=== PATIENT | male | born 1990 | race Caucasian/White ===

== ENCOUNTER 2021-03-02 13:02 | Emergency (ER) | payer MEDICAID, OTHER ==
[~2021-03-02] VITALS: Ht 180.3 cm; Wt 118.8 kg
[2021-03-02 13:12] VITALS: BP 137/82
--- NOTE | 2021-03-02 13:20 | NUR ---
C/O L WRIST PAIN S/P FALL X 3 DAYS. DENIES N/V/D; SKIN IS PINK/WARM/DRY; AAOX4 WITH EVEN AND STEADY GAIT; LUNGS CLEAR BL; HR EVEN AND REGULAR; PT DENIES ANY FEVER, CP, SOB, OR COUGH AT THIS TIME; PATIENT STATES PAIN OF 8/10 AT THIS TIME.
--- NOTE | 2021-03-02 14:09 | NUR ---
PT PLACED IN LEFT VELCRO THUMB SPICA SPLINT CMS WNL BEFORE AND AFTER.
[2021-03-02] MEDS ORDERED: IBUP-2213 PO (14:43)
[2021-03-02 14:52] VITALS: BP 137/82
== END 2021-03-02 14:52 | disposition home or self-care (01) ==
LOC: MED 13:02
DX: G89.29 Other chronic pain (principal); M25.532 Pain in left wrist; R03.0 Elevated blood-pressure reading, without diagnosis of hypertension; W11.XXXA Fall on and from ladder, initial encounter; Y93.89 Activity, other specified; Y92.89 Other specified places as the place of occurrence of the external cause; Y99.8 Other external cause status
CPT/HCPCS: 73110; 99283

== ENCOUNTER 2021-03-18 19:12 | Emergency (ER) | payer MEDICAID ==
[~2021-03-18] VITALS: Ht 180.3 cm; Wt 113.4 kg
[~2021-03-18 19:12] MED LIST: IBUP-2213 PO
[2021-03-18 19:26] VITALS: BP 114/79
--- NOTE | 2021-03-18 19:33 | NUR ---
PATIENT IN TENT
--- NOTE | 2021-03-18 19:38 | NUR ---
CALLED RT FOR BREATHING TX
--- NOTE | 2021-03-18 19:50 | NUR ---
called RT for Tx
[2021-03-18] MEDS ORDERED: ALBUTEROL SULFATE/IPRATROPIU 3 ML SOL IH ONE (20:00)
--- NOTE | 2021-03-18 20:10 | NUR ---
RT with patient for tx
[2021-03-18] MEDS ORDERED: ALBU0.0912 INH (21:53)
[2021-03-18 22:00] VITALS: BP 114/79
== END 2021-03-18 22:00 | disposition home or self-care (01) ==
LOC: MED 19:12
DX: U07.1 COVID-19 (principal); Z79.899 Other long term (current) drug therapy
CPT/HCPCS: 71045; 87426; 94640; 99284; U0003

== ENCOUNTER 2021-03-24 16:54 | Emergency (ER) | payer MEDICAID, SELFPAY ==
[~2021-03-24] VITALS: Ht 180.3 cm; Wt 113.4 kg
[~2021-03-24 16:54] MED LIST changes: +ALBU0.0912 INH
--- NOTE | 2021-03-24 17:14 | NUR ---
pt adviced to come in to be seen by MD and have CT done. pt asked to talk to before coming in.
--- NOTE | 2021-03-24 17:28 | NUR ---
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
--- NOTE | 2021-03-24 17:31 | NUR ---
31yo m bib c/o left sided weakness, facial numbness and change in speech x 1 day. pt has no hx of stroke. NIHSS completed and came back negative. Upon assessment of pt ambulation "with limp to L side and leaning to L side." Pt tested positive for covid 6 days ago. still with cough, sore throat and myalgia. pt currently states he is also experincing chest pain and sob at this moment. Pt admits to meth use saturday to help with chest pain and sob. pmh: none meds: none nka
--- NOTE | 2021-03-24 17:32 | NUR ---
labs collected bedside and given to director of cath lab [facility]
[2021-03-24 17:41] VITALS: BP 139/87
--- NOTE | 2021-03-24 17:42 | NUR ---
[facility] [phone]
--- NOTE | 2021-03-24 17:46 | NUR ---
smith swab done. handed to flor anaya.
[2021-03-24 17:52] LABS: BASOPHILS % (AUTO) 0.6 % (0.0-2.0); EOSINOPHILS # (AUTO) 0.1 K/uL (0-0.4); EOSINOPHILS % (AUTO) 1.3 % (0.0-4.0); HEMATOCRIT 40.6 % (36-52); HEMOGLOBIN 13.9 g/dL (12.0-18.0); LYMPHOCYTES # (AUTO) 2.3 K/uL (2.0-11.5); LYMPHOCYTES % (AUTO) 38.9 % (20.5-51.1); MEAN CORPUSCULAR HEMOGLOBIN 29 pg (27-31); MEAN CORPUSCULAR HGB CONC 34 g/dL (33-37); MEAN CORPUSCULAR VOLUME 85.6 fL (80-94); MONOCYTES # (AUTO) 0.7 K/uL (0.8-1.0); MONOCYTES % (AUTO) 11.5 % (1.7-9.3); NEUTROPHILS # (AUTO) 2.8 K/uL (1.8-7.7); NEUTROPHILS % (AUTO) 47.7 % (42.2-75.2); PLATELET COUNT (AUTO) 386 K/uL (140-450); RED BLOOD CELL COUNT(AUTO) 4.75 MIL/uL (4.20-6.10); RED CELL DISTRIBUTION WIDTH 13.1 % (11.6-13.7); WHITE BLOOD COUNT (AUTO) 5.9 K/uL (4.8-10.8)
--- NOTE | 2021-03-24 17:57 | NUR ---
leticia mtz collected bedside and walked over to lab
[2021-03-24 18:07] LABS: ALBUMIN 3.6 g/dL (3.4-5.0); ANION GAP 12.9 (8-16); CARBON DIOXIDE 26.8 mmol/L (21-32); CREATININE 1.1 mg/dL (0.6-1.3); POTASSIUM 3.7 mmol/L (3.5-5.1); TOTAL BILIRUBIN 0.6 mg/dL (0.0-1.0)
[2021-03-24 18:12] LABS: PROTHROMBIN TIME 9.8 secs (10.8-13.4)
[2021-03-24] MEDS ORDERED: REGENERON ANTIBODY ER ORDER 1 EA MISC MC ONE (18:25)
[2021-03-24] MEDS ORDERED: ERGOCALCIFEROL 50,000 IU SGL PO ONE (18:25)
[2021-03-24] MEDS ORDERED: DEXAMETHASONE 4 MG/ML VIAL IVP ONE (18:25)
--- NOTE | 2021-03-24 18:32 | NUR ---
Pt covid smith result came back as negative and made aware. Per md still instructed to given regeneron antibody. Pt stated "he was covid positive on saturday."
--- NOTE | 2021-03-24 18:42 | NUR ---
PT CURRENTLY RESTING WITH EYES OPEN. 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 VITAL SIGNS CURRENTLY STABLE. BED IN LOWEST POSITION WITH SIDERAIL X1 UP. WILL CONTINUE TO MONITOR
[2021-03-24] MEDS ORDERED: NON-FORMULARY ITEM 1 EA in NACL 0.9% 100 ML IV SCH (18:45)
--- NOTE | 2021-03-24 19:04 | NUR ---
ANGEL [phone]
--- NOTE | 2021-03-24 19:12 | NUR ---
report given to AZAM rose. transPt report given to AZAM Rose. Transfer of care at this time. Addendum: 03/24/21 at 1913 by [email or web address] Pt report given to AZAM Rose. Transfer of care at this time.
[2021-03-24] MEDS ORDERED: AZITHROMYCIN 500 MG in DEXTROSE 5% 250 ML IV ONE (19:35)
--- NOTE | 2021-03-24 20:00 | NUR ---
AWAKE AND ALERT, VOICES NO COMPLAINTS. SANDWICH GIVEN WITH OAPPLE JUICE. ATTACHED TO CM = SR.. PT STATES HE JUST FEELS TIRED
[2021-03-24] MEDS ORDERED: ZINC SULF 220 MG CAP PO SCH (20:05)
[2021-03-24] MEDS ORDERED: AZITHROMYCIN 500 MG INJ VIAL IV ONE (21:07)
[2021-03-24] MEDS ORDERED: ZINC50TA76 PO (21:30)
[2021-03-24] MEDS ORDERED: DEC4 PO (21:30)
[2021-03-24] MEDS ORDERED: IVER3TAB2 PO (21:30)
[2021-03-24] MEDS ORDERED: CHOL200072 PO (21:30)
[2021-03-24 22:00] VITALS: BP 128/76
--- NOTE | 2021-03-24 23:35 | NUR ---
Patient discharged with v/s stable. Written and verbal after care instructions given and explained. Patient alert, oriented and verbalized understanding of instructions. Ambulatory with steady gait. All questions addressed prior to discharge. ID band removed. Patient advised to follow up with PMD. Rx of VITAMIN D, DECADRON, IVERMECTIN, ZINC given. Patient educated on indication of medication including possible reaction and side effects. Opportunity to ask questions provided and answered.
== END 2021-03-24 23:35 | disposition home or self-care (01) ==
LOC: MED 16:54
DX: R07.9 Chest pain, unspecified (principal); R06.02 Shortness of breath; R51.9 Headache, unspecified; Z20.822 Contact with and (suspected) exposure to COVID-19; F17.210 Nicotine dependence, cigarettes, uncomplicated
CPT/HCPCS: 36415; 36600; 70450; 71045; 80053; 82803; 84484; 85025; 85379; 85610; 85730; 86886; 86900; 86901; 87040; 87426; 93005; 96365; 96375; 99285; J0456; J1100

== ENCOUNTER 2022-01-16 23:03 | Emergency (ER) | payer MEDICAID ==
[~2022-01-16] VITALS: Ht 180.3 cm; Wt 113.4 kg
[~2022-01-16 23:03] MED LIST changes: +CHOL200072 PO; +DEC4 PO; +IVER3TAB2 PO; +ZINC50TA76 PO
[2022-01-16 23:11] VITALS: BP 149/95
--- NOTE | 2022-01-16 23:25 | NUR ---
Called first time,- no show in lobby and outside.
--- NOTE | 2022-01-17 00:30 | NUR ---
Aditi bradley in ED - 01/17/22 at 0032 by [email or web address] PATIENT LEFT WITHOUT BEING SEEN BY DR. Ramos. NO FURTHER CARE PROVIDED FOR PATIENT.
--- NOTE | 2022-01-17 01:13 | NUR ---
Patient returned back from radiology dept.
--- NOTE | 2022-01-17 02:21 | NUR ---
Dr. Ramos examining patient.
[2022-01-17] MEDS ORDERED: NAPR-54 PO (02:35)
[2022-01-17] MEDS ORDERED: ACET-8386 PO (02:35)
[2022-01-17] MEDS ORDERED: BACI1PAC6 TP (02:35)
[2022-01-17] MEDS ORDERED: HYDROcodone/APAP 5/325 MG 1 TAB TAB PO ONE (02:35)
[2022-01-17] MEDS ORDERED: BACITRACIN OINT 500 UNITS/GM PKT TP ONE (02:35)
[2022-01-17] MEDS ORDERED: HYDROcodone/APAP 5/325 MG 1 TAB TAB ONE (02:37)
[2022-01-17 03:29] VITALS: BP 136/82
--- NOTE | 2022-01-17 03:29 | NUR ---
Patient discharged with v/s stable. Written and verbal after care instructions given and explained for finger fracture. Patient alert, oriented and verbalized understanding of instructions. Ambulatory with steady gait. All questions addressed prior to discharge. ID band removed. Patient advised to follow up with PMD. Rx of [place], Bacitracin and Naproxen given. Patient educated on indication of medication including possible reaction and side effects. Opportunity to ask questions provided and answered. Given CD to patient.
== END 2022-01-17 03:29 | disposition home or self-care (01) ==
LOC: MED 23:03
DX: S62.663A Nondisplaced fracture of distal phalanx of left middle finger, initial encounter for closed fracture (principal); S60.132A Contusion of left middle finger with damage to nail, initial encounter; Z79.1 Long term (current) use of non-steroidal anti-inflammatories (NSAID); Z79.891 Long term (current) use of opiate analgesic; Z79.2 Long term (current) use of antibiotics; Z79.899 Other long term (current) drug therapy; W23.0XXA Caught, crushed, jammed, or pinched between moving objects, initial encounter; Y93.89 Activity, other specified; Y92.89 Other specified places as the place of occurrence of the external cause; Y99.8 Other external cause status
CPT/HCPCS: 73140; 99283